=== PATIENT | male | born 1955 | race Caucasian/White ===

== ENCOUNTER 2022-05-26 12:31 | Emergency (ER) | payer OTHER ==
[~2022-05-26] VITALS: Ht 170.2 cm; Wt 95.7 kg
[2022-05-26 13:13] VITALS: BP 133/86
[2022-05-26] MEDS ORDERED: KETOROLAC 30 MG/ML VIAL IM ONE (14:55)
[2022-05-26] MEDS ORDERED: CYCL-711 PO (14:55)
[2022-05-26] MEDS ORDERED: LIDOCAINE 5% 1 EA PATCH TP SCH (14:55)
[2022-05-26] MEDS ORDERED: ACET-11169 PO (15:00)
[2022-05-26] MEDS ORDERED: LIDO5TDM59 TP (15:01)
--- NOTE | 2022-05-26 15:22 | NUR ---
Patient discharged with v/s stable. Written and verbal after care instructions given and explained. Patient verbalized understanding. Ambulatory with steady gait. All questions addressed prior to discharge. Advised to follow up with PMD.
== END 2022-05-26 15:22 | disposition home or self-care (01) ==
LOC: MED 12:31
DX: S16.1XXA Strain of muscle, fascia and tendon at neck level, initial encounter (principal); X58.XXXA Exposure to other specified factors, initial encounter; Y93.89 Activity, other specified; Y92.89 Other specified places as the place of occurrence of the external cause; Y99.8 Other external cause status
CPT/HCPCS: 96372; 99283; J1885